=== PATIENT | female | born 1945 | race Caucasian/White ===

== ENCOUNTER → 2024-01-01 10:08 | Outpatient (BNVA) | payer MEDICARE, SELFPAY | PROVIDERS: PCP Internal Medicine; Referring Provider Internal Medicine; Visit Provider Specialist | DX: G24.3 Spasmodic torticollis (principal); M54.81 Occipital neuralgia | CPT/HCPCS: 64405; 64450; 99204; J1030; J3490 ==

== ENCOUNTER → 2024-01-31 12:24 | Outpatient (BNVA) | payer MEDICARE, SELFPAY | PROVIDERS: PCP Internal Medicine; Visit Provider Specialist | DX: G24.3 Spasmodic torticollis (principal); M54.81 Occipital neuralgia | CPT/HCPCS: 64616; J0585 ==

== ENCOUNTER → 2024-03-13 14:35 | Outpatient (BNVA) | payer MEDICARE, SELFPAY | PROVIDERS: PCP Internal Medicine; Visit Provider Specialist | DX: G24.3 Spasmodic torticollis (principal) | CPT/HCPCS: 64405; 64450; J1010; J3490 ==

== ENCOUNTER → 2024-05-01 09:12 | Outpatient (BNVA) | payer MEDICARE, SELFPAY | PROVIDERS: PCP Internal Medicine; Visit Provider Specialist | DX: G24.3 Spasmodic torticollis (principal); M54.81 Occipital neuralgia | CPT/HCPCS: 64616; J0585 ==

== ENCOUNTER → 2024-08-22 11:52 | Outpatient (BNVA) | payer MEDICARE, SELFPAY | PROVIDERS: PCP Internal Medicine; Visit Provider Specialist | DX: G24.3 Spasmodic torticollis (principal); M54.81 Occipital neuralgia; R03.0 Elevated blood-pressure reading, without diagnosis of hypertension | CPT/HCPCS: 64616; J0585 ==

== ENCOUNTER → 2024-10-24 13:22 | Outpatient (BNVA) | payer MEDICARE, SELFPAY | PROVIDERS: PCP Internal Medicine; Visit Provider Specialist | DX: M54.81 Occipital neuralgia (principal); G24.3 Spasmodic torticollis; R03.0 Elevated blood-pressure reading, without diagnosis of hypertension | CPT/HCPCS: 64405; 64450; J1010; J3490 ==